=== PATIENT | male | born 1975 | race Caucasian/White ===

== ENCOUNTER → 2021-11-03 | Outpatient (CLI) | payer OTHER ==
[2015-12-11 12:35] VITALS: BP 126/84
[~2021-11-03] MED LIST: CYCL10TA19 PO; HYDR-3165 PO
--- NOTE | 2021-11-03 15:29 | RAD ---
XR KNEE_AP BILAT STANDING, XR KNEE_LT 1-2 VIEWS History: Reason: CHRONIC LT KNEE PAIN / Spl. Instructions: / History: Technique: Standing AP view bilateral knees and 2 views of the left knee. Comparison: None. Findings: Left knee: Mild to moderate left knee degenerative changes with medial joint space narrowing and valentin llar spurring. Minimal knee joint effusion. No dislocation. No acute fracture. Postoperative changes right knee anterior cruciate ligament repair. Moderate right knee degenerative changes on AP view. Impression: 1. 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 Electronically signed by: Aamir Sy DO (11/03/2021 3:27 PM) [id number]
== END ==
LOC: RAD 09:39
PROVIDERS: ATTEND Physician Assistant
DX: M17.0 Bilateral primary osteoarthritis of knee (principal); M25.861 Other specified joint disorders, right knee
CPT/HCPCS: 73560; 73565